=== PATIENT | female | born 1955 | race Caucasian/White ===

== ENCOUNTER 2018-05-25 06:59 | Day surgery (SDC) | payer BC ==
[2018-05-24 13:12] VITALS: BMI 27.1
[2018-05-25 08:00] VITALS: BP 101/69; TEMP 97.6
--- NOTE | 2018-05-25 08:51 | RAD ---
CERVICAL SPINE FIVE VIEWS: HISTORY: Neck pain. Prior surgery. FINDINGS: Vertebral body heights and alignment are maintained. Anterior fixation plate and screws are in place at the C3, C4, C5, and C6 levels. Interbody fusion material is present at the anterior margins of t he disk spaces. No perihardware lucency is reliably demonstrated. No abnormal translational motion upon flexion or extension. IMPRESSION: 1. Anterior operative fixation of the cervical spine. 2. No acute osseous abnormalities are demonstrated. POS: [facility]
--- NOTE | 2018-05-25 09:41 | RAD ---
FOUR VIEWS LUMBAR SPINE: INDICATION: History of low back pain. COMPARISON: Prior lumbar spine radiographs dated 04/27/2013 from [facility]. FINDINGS: Since the comparison examination, there has been interval revision of the posterolateral lumbar inter body fusion previously seen from L3 through L5. This has been extended up to the L2 level with assoc iated laminectomy changes. There is some posterolateral bone graft present that appears to be well i ncorporated. The instrumentation projects in the expected position without gross evidence of complic ation. Left SI joint arthrodesis has also been an interval development. Intervertebral bone graft c age at L4-5 is not appreciably changed. The grade I anterolisthesis of L4 on L5 and L5 on S1 are stable. No abnormal translational motion is demonstrated. Cholecystectomy clips are seen within the right upper quadrant. A small phlebolith is seen within th e right lower hemipelvis. IMPRESSION: 1. Postoperative lumbar spine with revision of the posterolateral interbody fusion from L2 through L 5. There is posterolateral bone graft that appears to have solid osseous incorporation. There has b een interval laminectomy change at L2. 2. No abnormal translational motion. Stable grade I anterolisthesis of L5 on S1 and L4 on L5. POS: [facility]
--- NOTE | 2018-05-25 09:58 | RAD ---
LUMBAR MYELOGRAM: INDICATIONS: Neck and back pain. TECHNIQUE: Informed consent was obtained. Preprocedure cutting and splicing supervisor images were performed. The patient was placed pro ne on the procedure table. The site overlying the left L3-L4 interlaminar space was marked. The sit e was prepped and draped in the usual sterile fashion. Buffered 1% Lidocaine was administered to the overlying subcutaneous tissues. Under fluoroscopic guidance, a 22 gauge spinal needle was guided do wn into the thecal sac. There was spontaneous return of normal appearing CSF. Omnipaque 300 12 mL w as administered into the thecal sac. The inner stylet was placed. The needle was removed. The josh ent tolerated the injection without difficulty. The patient was then placed in Trendelenburg to eval uate the contrast flow to the level of the cervical spine, as the patient was to have a CT of the cer vical, thoracic, and lumbar spine. Total fluoroscopic time was 0.8 minutes. Total exposure was 259. 6 cg per m2. IMPRESSION: Successful lumbar myelogram. POS: [facility]
[2018-05-25] MEDS ORDERED: Iopamidol 300 61% 30 ML VIAL ONE (10:17)
--- NOTE | 2018-05-25 10:34 | CT ---
CT THORACIC MYELOGRAM: INDICATIONS: History of back pain. COMPARISON: None. TECHNIQUE: Multiple CT images were obtained of the thoracic spine following the intrathecal administration of Om nipaque 300 solution. Please see separately dictated lumbar myelogram for details concerning the inj ection technique. FINDINGS: There is partial visualization of an ACDF involving the lower cervical spine. There is advanced disk degenerative disease at T7-T8 with mild modic endplate degenerative changes. No acute fracture is evident. Spinal alignment appears within normal limits. At T1-T2, there is no appreciable central canal or neural foraminal narrowing. At T2-T3, there is no appreciable central canal or neural foraminal narrowing. At T3-T4, there is no appreciable central canal or neural foraminal narrowing. At T4-T5, there is no appreciable central canal or neural foraminal narrowing. At T5-T6, there is no appreciable central canal or neural foraminal narrowing. At T6-T7, there is no appreciable central canal or neural foraminal narrowing. At T7-T8, there is a mild broad-based bulge causing mild effacement of the ventral subarachnoid space without definite cord contact. At T8-T9, there is a small broad-based bulge without appreciable central canal narrowing. At T9-T10, there is a small disk bulge. At T10-T11, there is a small broad-based bulge. At T11-T12, there is a mild broad-based bulge. At T12-L1, there is no appreciable central canal or neural foraminal narrowing. There are some hazy areas of ground glass opacity within the right lower lobe, which can reflect infe ctious pneumonitis. There is a fat-containing Bochdalek hernia. There is a small pericardial effusion. IMPRESSION: 1. Moderate multilevel spondylosis of the thoracic spine with mild broad-based bulges seen at T7-T8 through T11-T12. The most prominent is at T7-T8, which causes mild ventral effacement of the subarac hnoid space, without definite cord compression. 2. Hazy ground glass opacities in the right lower lobe, which may reflect infectious pneumonitis. R ecommend correlation with the patient's clinical examination. 3. Small pericardial effusion. POS: [facility]
--- NOTE | 2018-05-25 10:42 | CT ---
CT LUMBAR MYELOGRAM: INDICATIONS: Low back pain. COMPARISON: Prior CT of the lumbar spine dated 07/05/2014, done at [facility]. FINDINGS: Since the comparison examination, there has been interval revision of the interbody fusion from L3 to L5. There has been extension of the interbody fusion from L2 through L5 with replacement of the ins trumentation. There is sold osseous interbody bone graft seen posterolaterally. There is stable grade 1 anterolisthesis at L4-L5 and L5-S1. There are mild vascular calcifications i nvolving the abdominopelvic vasculature. There is post surgical change of a left-sided SI joint fusion, which is stable since the prior exam. No acute fracture is evident. At L5-S1, the grade 1 anterolisthesis, in addition to the osteophyte complexes at L5-S1, induces mode rate left and mild right neural foraminal narrowing, which appears stable. At L4-L5, there is no appreciable central canal or neural foraminal narrowing demonstrated. At L3-L4, there is a mild broad-based bulge but no appreciable central canal or neural foraminal narr owing. At L2-L3, there is an asymmetric to the right broad-based bulge, inducing mild bilateral neural arlette inal narrowing, right greater than left. The neural foraminal narrowing at L2-L3 is stable to the pr ior exam. At L1-L2, there is a worsening broad-based bulge causing mild bilateral neural foraminal narrowing, w hich is new from the comparison exam. At T12-L1, there is no appreciable central canal or neural foraminal narrowing. IMPRESSION: 1. Worsening broad-based bulge at L1-L2, inducing mild bilateral neural foraminal narrowing. 2. Laminectomy changes at L2 with associated posterolateral interbody fusion, a new development from the prior examination. There is a residual broad-based bulge inducing mild bilateral neural foramin al narrowing, right greater than left, that appears similar to the prior examination. 3. Revision of the posterolateral interbody fusion from L2 through L5, with solid osseous incorporat ion of the posterolateral interbody bone graft. 4. Stable grade 1 anterolisthesis of L4-L5 and L5-S1. POS: [facility]
--- NOTE | 2018-05-25 10:56 | CT ---
CT CERVICAL MYELOGRAM: INDICATION: History of neck pain. COMPARISON: Prior CT cervical spine without contrast dated 07/05/2014. FINDINGS: Since the comparison examination, there has been revision of the ACDF spanning C4 through C7. There has been interval placement of a fibular strut graft at C4-5, C5-6, and C6-7. Solid osseous incorpor ation of the interbody bone graft. Visualized aspects of the posterior fossa are unremarkable appearing. At the C2-C3 level, there is a mild broad-based bulge, but no appreciable central canal or neural for aminal narrowing. At C3-4, there is a moderate broad-based bulge with uncovertebral hypertrophy and facet joint degener ative change likely inducing mild left and moderate right neural foraminal narrowing with mild centra l canal narrowing. At C4-5, there is mild osseous neural foraminal narrowing bilaterally. There is mild residual centra l canal narrowing due to an osteophyte complex. The osteophyte complex at C4-5 is stable. At C5-6, there is a broad-based osteophyte complex causing mild residual central canal narrowing. Th ere is mild bilateral neural foraminal narrowing. This osteophyte complex is stable to the prior exa m. At C6-7, there is a broad-based osteophyte complex and facet joint degenerative change inducing mild right neural foraminal narrowing and moderate central canal narrowing. There is mild ventral effacem ent of the spinal cord at this location. There is mild to moderate right and moderate left neural fo raminal narrowing at C7-T1 due to facet joint hypertrophy. This has developed since the prior exam d ated 07/02/2014. The large osteophyte complex at C6-7 is stable to the prior. At C7-T1, there is no appreciable osseous central canal narrowing. There is mild bilateral neural fo raminal narrowing due to T7-T1 facet joint complex hypertrophy. There is very subtle C7 on T1 anteri or translation. IMPRESSION: 1. Multilevel spondylosis of the cervical spine with interval revision of the anterior cervical disk ectomy and fusion from C4 through C7 with solid osseous incorporation of the interbody bone graft. T here is now C7 on T1 anterior translation which is new. There is also bilateral neural foraminal sammie rowing of C7-T1 due to facet hypertrophy that is new. 2. Osteophyte complexes at C4-5, C5-6, and C6-7 are stable. There is mild effacement of the ventral spinal cord at C6-7 which is likely stable. 3. Mild central canal narrowing at C3-4 due to a broad-based bulge. Mild left and moderate right ne uroforaminal narrowing at C3-4. POS: [facility]
== END 2018-05-25 11:00 | disposition home or self-care (01) ==
LOC: RAD 06:59
PROVIDERS: ATTEND Surgery
PROC: B02B1ZZ Computerized Tomography (CT Scan) of Spinal Cord using Low Osmolar Contrast (ICD-10-PCS; principal; 2018-05-25)
DX: M47.812 Spondylosis without myelopathy or radiculopathy, cervical region (principal); M48.02 Spinal stenosis, cervical region; M54.2 Cervicalgia; M25.78 Osteophyte, vertebrae; M47.814 Spondylosis without myelopathy or radiculopathy, thoracic region; M48.061 Spinal stenosis, lumbar region without neurogenic claudication; M51.26 Other intervertebral disc displacement, lumbar region; M43.16 Spondylolisthesis, lumbar region; M81.0 Age-related osteoporosis without current pathological fracture; Z79.1 Long term (current) use of non-steroidal anti-inflammatories (NSAID); Z79.52 Long term (current) use of systemic steroids; Z79.83 Long term (current) use of bisphosphonates; Z79.899 Other long term (current) drug therapy; Z88.0 Allergy status to penicillin; Z88.2 Allergy status to sulfonamides; Z88.6 Allergy status to analgesic agent; Z98.1 Arthrodesis status
CPT/HCPCS: 62305; 72052; 72100; 72126; 72129; 72132

== ENCOUNTER 2021-02-15 14:54 | Outpatient (CLI) | payer BC ==
[2021-02-15 15:51] LABS: #Basophils 0.1 10x3/uL (0.0-0.2); #Eosinphils 0.2 10x3/uL (0.0-0.5); #Monocytes 0.5 10x3/uL (0.0-1.1); #Neutrophils 3.9 10x3/uL (1.5-8.4); %Basophils 0.9 % (0.0-2.0); %Eosinophils 2.8 % (0.0-6.0); %Lymphocytes 36.1 % (18.0-47.0); %Monocytes 6.7 % (0.0-10.0); %Neutrophils 52.8 % (40.0-75.0); Hemoglobin 13.1 g/dL (12.0-15.5); Mean Corpuscular Hemoglobin 28.6 pg (27.0-33.0); Mean Corpuscular Volume 89.3 fl (81.6-98.3); Mean Platelet Volume 10.3 fl (7.4-10.4); Platelet Count 276 10x3/uL (150-450); RBC Distribution Width 14.1 % (11.5-14.5); Red Blood Cell (RBC) Count 4.58 10x6/uL (3.90-5.03); White Blood Cell (WBC) Count 7.4 10x3/uL (3.5-10.5)
[2021-02-15 16:24] LABS: Anion Gap 13 mmol/L (10-20); BUN (Urea Nitrogen) 11 mg/dL (9.8-20.1); Calc. Creatinine Clearance 0 mL/min (70-130); Calcium 9.4 mg/dL (7.8-10.44); Carbon Dioxide 24 mmol/L (23-31); Chloride 103 mmol/L (98-107); Glucose 120 mg/dL (80-115); Potassium 3.5 mmol/L (3.5-5.1); Sodium 136 mmol/L (136-145)
== END 2021-02-15 14:55 | disposition home or self-care (01) ==
LOC: LABBT 14:54
PROVIDERS: ATTEND Surgery
DX: Z01.812 Encounter for preprocedural laboratory examination (principal); K43.9 Ventral hernia without obstruction or gangrene
CPT/HCPCS: 80048; 85025

== ENCOUNTER 2021-02-18 09:48 | Day surgery (SDC) | payer BC ==
[2021-02-15 11:16] VITALS: BMI 27.4
[2021-02-18] MEDS ORDERED: Scopolamine 1.5 mg/72 hour Patch ONE (11:00)
[2021-02-18] MEDS ORDERED: Levofloxacin 500 mg/D5W 100 ml Premix Bag ONE (11:14)
[2021-02-18] MEDS ORDERED: Bupivacaine 0.25% HCL 30 ML VIAL ONE (11:41)
[2021-02-18] MEDS ORDERED: Lidocaine 1% w/Epinephrine 1:100K 20 ML VIAL ONE (11:41)
[2021-02-18] MEDS ORDERED: Famotidine/PF 20 mg/2ml Vial ONE (11:48)
[2021-02-18] MEDS ORDERED: SUGAMMADEX SODIUM 200 MG/2 ML VIAL ONE (11:48)
[2021-02-18] MEDS ORDERED: Fentanyl 100 MCG/2 ML VIAL ONE ×2 (11:48→13:16)
[2021-02-18] MEDS ORDERED: PROPOFOL 200 MG/20 ML VIAL ONE (12:07)
[2021-02-18] MEDS ORDERED: Dexamethasone 20 MG/5 ML VIAL ONE (12:07)
[2021-02-18] MEDS ORDERED: Rocuronium Bromide 10 MG/ML (10ML VIAL) ONE (12:07)
[2021-02-18] MEDS ORDERED: Ketorolac Tromethamine 30 MG/ML VIAL ONE (12:07)
[2021-02-18] MEDS ORDERED: Metoclopramide HCl 10 MG/2 ML VIAL ONE (12:07)
[2021-02-18] MEDS ORDERED: Ondansetron PF 4 MG/2 ML Vial ONE (12:07)
[2021-02-18] MEDS ORDERED: PHENYLEPHRINE-NS 100 MCG/ML 10 ML SYRINGE ONE (12:07)
[2021-02-18] MEDS ORDERED: Lidocaine 1% PF 5 ML VIAL ONE (12:07)
[2021-02-18] MEDS ORDERED: Promethazine HCl 25 MG/ML VIAL ONE (13:40)
[2021-02-18] MEDS ORDERED: Morphine 4 MG/ML VIAL ONE (14:20)
[2021-02-18] MEDS ORDERED: HYDROcodone/Acetaminophen 5/325 mg Tablet ONE (14:36)
== END 2021-02-18 15:07 | disposition home or self-care (01) ==
LOC: SDC 09:48
PROVIDERS: ATTEND Surgery
PROC: 0WUF4JZ Supplement Abdominal Wall with Synthetic Substitute, Percutaneous Endoscopic Approach (ICD-10-PCS; principal; 2021-02-18)
DX: K43.9 Ventral hernia without obstruction or gangrene (principal); E03.9 Hypothyroidism, unspecified; M32.9 Systemic lupus erythematosus, unspecified; Z79.899 Other long term (current) drug therapy; Z88.0 Allergy status to penicillin; Z88.2 Allergy status to sulfonamides; Z88.6 Allergy status to analgesic agent
CPT/HCPCS: C1781; J1100; J1885; J1956; J2270; J2405; J2550; J2704; J2765; J3010; S0020; S0028

== ENCOUNTER 2022-05-21 13:46 | Outpatient (CLI) | payer BC, MEDICARE ==
[2022-05-21 15:06] LABS: #Basophils 0.1 10x3/uL (0.0-0.2); #Eosinphils 0.3 10x3/uL (0.0-0.5); #Monocytes 0.3 10x3/uL (0.0-1.1); #Neutrophils 3.6 10x3/uL (1.5-8.4); %Basophils 0.8 % (0.0-2.0); %Eosinophils 4.6 % (0.0-6.0); %Lymphocytes 31.5 % (18.0-47.0); %Monocytes 5.4 % (0.0-10.0); %Neutrophils 57.2 % (40.0-75.0); Hemoglobin 12.5 g/dL (12.0-15.5); Mean Corpuscular HGB CONC 32.2 g/dL (32.0-36.0); Mean Corpuscular Hemoglobin 29.8 pg (27.0-33.0); Mean Corpuscular Volume 92.4 fl (81.6-98.3); Mean Platelet Volume 10.8 fl (7.4-10.4); Platelet Count 228 10x3/uL (150-450); White Blood Cell (WBC) Count 6.4 10x3/uL (3.5-10.5)
[2022-05-21 15:31] LABS: Anion Gap 12 mmol/L (10-20); BUN (Urea Nitrogen) 16 mg/dL (9.8-20.1); Calc. Creatinine Clearance 0 mL/min (70-130); Calcium 9.2 mg/dL (7.8-10.44); Carbon Dioxide 25 mmol/L (23-31); Chloride 105 mmol/L (98-107); Estimated GFR 71; Glucose 191 mg/dL (80-115); Potassium 3.4 mmol/L (3.5-5.1); Sodium 139 mmol/L (136-145)
== END 2022-05-21 13:47 | disposition home or self-care (01) ==
LOC: LABBT 13:46
PROVIDERS: ATTEND Orthopaedic Surgery
DX: Z01.812 Encounter for preprocedural laboratory examination (principal); M12.811 Other specific arthropathies, not elsewhere classified, right shoulder
CPT/HCPCS: 80048; 85025; 93005; 93010

== ENCOUNTER 2022-05-22 05:49 | Observation (INO) | payer BC ==
[2022-05-21 09:29] VITALS: BMI 23.8
[2022-05-22] MEDS ORDERED: Sodium Chloride 0.9% 100 ML ONE (05:59)
[2022-05-22] MEDS ORDERED: Tranexamic Acid 1,000 MG/10 ML VIAL ONE (05:59)
[2022-05-22] MEDS ORDERED: Vancomycin 1 GM/200 ML (FROZEN) BAG ONE (05:59)
[2022-05-22] MEDS ORDERED: Midazolam HCl 2 mg/2 ml Vial ONE ×2 (06:12→07:15)
[2022-05-22] MEDS ORDERED: Lidocaine 2% 6 ML SYR ONE (06:13)
[2022-05-22] MEDS ORDERED: fentaNYL PF 100 MCG/2 ML SYRINGE ONE (06:13)
[2022-05-22] MEDS ORDERED: Fentanyl 250 MCG/5 ML VIAL ONE (06:42)
[2022-05-22] MEDS ORDERED: HYDROcodone/Acetaminophen 10/325 mg Tablet PO PRN ×3 (07:11→08:15)
[2022-05-22] MEDS ORDERED: Fentanyl 100 MCG/2 ML VIAL ONE (07:15)
[2022-05-22] MEDS ORDERED: Levofloxacin 500 mg/D5W 100 ml Premix Bag ONE (07:23)
[2022-05-22] MEDS ORDERED: PROPOFOL 200 MG/20 ML VIAL ONE (07:30)
[2022-05-22] MEDS ORDERED: Rocuronium Bromide 10 MG/ML (10ML VIAL) ONE (07:30)
[2022-05-22] MEDS ORDERED: Glycopyrrolate 0.2 MG/ML 5 ML SYRINGE ONE (07:30)
[2022-05-22] MEDS ORDERED: Dexamethasone 20 MG/5 ML VIAL ONE (07:30)
[2022-05-22] MEDS ORDERED: Ondansetron PF 4 MG/2 ML Vial ONE (07:30)
[2022-05-22] MEDS ORDERED: NEOSTIGMINE 3 MG/3 ML SYR 3 MG/3 ML SYRINGE ONE (07:30)
[2022-05-22] MEDS ORDERED: Ropivacaine 0.2% 550 ML 550 ML NERVE BLCK SCH (08:15)
[2022-05-22] MEDS ORDERED: Ondansetron PF 4 MG/2 ML Vial IVP PRN (08:15)
[2022-05-22] MEDS ORDERED: Promethazine HCl 25 MG/ML VIAL IM PRN (08:15)
[2022-05-22] MEDS ORDERED: Zolpidem Tartrate 5 MG TAB PO PRN (08:15)
[2022-05-22] MEDS ORDERED: traMADol HCl 50 MG TAB PO PRN ×2 (08:15)
[2022-05-22] MEDS ORDERED: Ropivacaine 0.5% HCl/PF (150 MG/30 ML VIAL) ONE (08:17)
[2022-05-22 08:26] LABS: SARS-CoV-2 NAA Rapid Test Not Detected (NotDetected)
[2022-05-22] MEDS ORDERED: Ondansetron HCl/PF 4 MG/2 ML Vial IVP PRN (09:51)
[2022-05-22] MEDS: Ketorolac Tromethamine 30 MG/ML VIAL IVP SCH ×2 (16:55→16:56)
[2022-05-22] MEDS: HYDROcodone/Acetaminophen 10/325 mg Tablet PO PRN ×2 (16:56→22:08)
[2022-05-22] MEDS: predniSONE 5 MG TAB PO SCH (17:49)
[2022-05-22] MEDS: Lactated Ringer's 1,000 ML IV SCH ×2 (17:49→18:08)
[2022-05-22] MEDS: DULoxetine 60 MG CAP PO SCH (17:50)
[2022-05-22] MEDS: Losartan 25 MG TAB PO SCH (17:50)
[2022-05-22] MEDS: Oxybutynin ER 5 MG TAB PO SCH (17:50)
[2022-05-22] MEDS: Dexamethasone 10 MG in Sodium Chloride 0.9% 50 ML IVPB SCH (17:50)
[2022-05-22] MEDS: Gabapentin 300 MG CAP PO SCH ×2 (17:50→20:00)
[2022-05-22] MEDS ORDERED: Vancomycin HCl 1.5 GM in Sodium Chloride 0.9% 250 ML 300 ML IVPB SCH (18:00)
[2022-05-22] MEDS ORDERED: traZODone HCl 150 MG TAB PO SCH (21:00)
[2022-05-23] MEDS: Ketorolac Tromethamine 30 MG/ML VIAL IVP SCH ×2 (01:01→05:00)
[2022-05-23 02:47] VITALS: TEMP 97.9
[2022-05-23] MEDS: HYDROcodone/Acetaminophen 10/325 mg Tablet PO PRN (04:30)
[2022-05-23] MEDS ORDERED: Levothyroxine Sodium 112 MCG TAB PO SCH (06:00)
[2022-05-23] MEDS: Losartan 25 MG TAB PO SCH (07:47)
[2022-05-23] MEDS: Gabapentin 300 MG CAP PO SCH (09:05)
[2022-05-23] MEDS: predniSONE 5 MG TAB PO SCH (09:05)
[2022-05-23] MEDS: DULoxetine 60 MG CAP PO SCH (09:05)
[2022-05-23] MEDS: Oxybutynin ER 5 MG TAB PO SCH (09:05)
[2022-05-23] MEDS: Dexamethasone 10 MG in Sodium Chloride 0.9% 50 ML IVPB SCH (10:37)
[2022-05-23 11:40] VITALS: BP 117/69
[2022-05-24] MEDS ORDERED: Dexamethasone 10 MG/ML VIAL SLOW IVP SCH (09:00)
[2022-05-26] MEDS ORDERED: Ergocalciferol 1.25 MG(50,000 UNITS) CAP PO SCH (09:00)
== END 2022-05-23 11:35 | disposition home or self-care (01) ==
LOC: SDC 05:49 → SURG A 07:15
PROVIDERS: ADMIT Orthopaedic Surgery; ATTEND Orthopaedic Surgery
PROC: 0RRJ00Z Replacement of Right Shoulder Joint with Reverse Ball and Socket Synthetic Substitute, Open Approach (ICD-10-PCS; principal; 2022-05-22)
DX: M12.811 Other specific arthropathies, not elsewhere classified, right shoulder (principal); M75.21 Bicipital tendinitis, right shoulder; E03.9 Hypothyroidism, unspecified; M32.9 Systemic lupus erythematosus, unspecified; Z79.1 Long term (current) use of non-steroidal anti-inflammatories (NSAID); Z79.52 Long term (current) use of systemic steroids; Z79.890 Hormone replacement therapy; Z79.899 Other long term (current) drug therapy; Z88.0 Allergy status to penicillin; Z88.2 Allergy status to sulfonamides; Z88.5 Allergy status to narcotic agent; Z88.6 Allergy status to analgesic agent; Z98.890 Other specified postprocedural states; Z20.822 Contact with and (suspected) exposure to COVID-19
CPT/HCPCS: 36416; A4306; C1713; C1776; J1100; J1885; J1956; J2250; J2405; J2704; J2795; J3010; J3370; J3370-JW; J3490; J7050; J7120; J7512; U0002

== ENCOUNTER 2022-11-18 15:54 | Outpatient (CLI) | payer BC | END 2022-11-18 15:55 | disposition home or self-care (01) | LOC: BICCT 15:54 | PROVIDERS: ATTEND Orthopaedic Surgery | DX: Z47.1 Aftercare following joint replacement surgery (principal); Z96.611 Presence of right artificial shoulder joint ==